=== PATIENT | male | born 1995 | race Hispanic/Latino ===

== ENCOUNTER → 2016-05-04 | Outpatient (REF) | payer OTHER | LOC: M LAB REF 16:46 | PROVIDERS: ATTEND Surgery | DX: L72.0 Epidermal cyst (principal) ==

== ENCOUNTER 2017-07-14 04:09 | Emergency (ER) | payer OTHER | END 2017-07-14 08:14 | disposition home or self-care (01) | LOC: M ED 04:09 | DX: K30 Functional dyspepsia (principal); E86.0 Dehydration | CPT/HCPCS: 99283 ==

== ENCOUNTER 2018-01-23 11:34 | Emergency (ER) | payer OTHER, SELFPAY | END 2018-01-23 12:53 | disposition home or self-care (01) | LOC: M ED 11:34 | DX: J06.9 Acute upper respiratory infection, unspecified (principal) | CPT/HCPCS: 71046 ==